=== PATIENT | male | born 1940 | race Caucasian/White ===

== ENCOUNTER 2023-12-13 14:05 | Observation (INO) | payer BC ==
[~2023-12-13] VITALS: Ht 180.3 cm; Wt 86.5 kg
[2023-12-13 15:13] LABS: BASO # 0.1 10^3/uL (0.0-0.2); BASO % 0.8 % (0.0-1.0); EOS # 0.1 10^3/uL (0.0-0.5); EOS % 0.5 % (0.0-3.0); HEMATOCRIT 41.3 % (42.0-52.0); LYMPH # 1.3 10^3/uL (1.5-5.0); LYMPH % 12.4 % (24.0-44.0); MEAN CORPUSCULAR HGB CONC 33.9 g/dl (32.0-36.5); MEAN CORPUSCULAR VOLUME 97.4 fl (80.0-96.0); MONO # 0.8 10^3/uL (0.0-0.8); NEUTROPHILS # 7.8 10^3/uL (1.5-8.5); NEUTROPHILS % 77.6 % (36.0-66.0); PLATELET COUNT, AUTOMATED 232 10^3/uL (150-450); RED BLOOD COUNT 4.24 10^6/uL (4.30-6.10); WHITE BLOOD COUNT 10.1 10^3/uL (4.0-10.0)
[2023-12-13 15:31] LABS: INR 1.02; PARTIAL THROMBOPLASTIN TIME 27.1 SECONDS (24.8-34.2); PROTHROMBIN TIME 13.1 SECONDS (12.5-14.5)
[2023-12-13 15:42] LABS: ALBUMIN 3.5 G/DL (3.2-5.2); BILIRUBIN,DIRECT 0.1 MG/DL (<0.4); BILIRUBIN,TOTAL 0.5 MG/DL (0.3-1.2); CALCIUM LEVEL 9.1 MG/DL (8.3-10.6); CREATININE FOR GFR 1.29 MG/DL (0.70-1.30); GLOMERULAR FILTRATION RATE 56.6 (>35); MB/CK RELATIVE INDEX 3.7 (< OR =4); POTASSIUM SERUM 4.7 MMOL/L (3.5-5.1); TOTAL PROTEIN 6.6 G/DL (5.7-8.2)
[2023-12-13 15:44] LABS: FREE T4 1.46 NG/DL (0.89-1.76); THYROID STIMULATING HORMONE 1.183 uIU/ML (0.55-4.78)
[2023-12-13] MEDS ORDERED: LEVO88TA24 PO (15:49)
[2023-12-13] MEDS ORDERED: PRED5TA PO (15:49)
[2023-12-13] MEDS ORDERED: FLOM0.4C39 PO (15:49)
[2023-12-13] MEDS ORDERED: VENTAER INH ×2 (15:49)
[2023-12-13] MEDS ORDERED: ESOM1CAP20 PO (15:49)
[2023-12-13] MEDS ORDERED: LISI10TA22 PO (15:49)
[2023-12-13] MEDS ORDERED: CHOL25TA8 PO (15:49)
[2023-12-13] MEDS ORDERED: MYRB25TA PO (15:49)
[2023-12-13] MEDS ORDERED: HOME MED LIST COMPLETE! XX SCH (15:50)
[2023-12-13] MEDS ORDERED: ISOVUE-370 76% 100ML VIAL As Ordered ONE (16:01)
[2023-12-13 16:52] LABS: MB/CK RELATIVE INDEX 3.5 (< OR =4)
[2023-12-13] MEDS: ASPIRIN 81MG CHEW TABLET PO ONE (17:28)
[2023-12-13] MEDS ORDERED: LEVALBUTEROL 1.25MG 0.5ML CONCENTRATE NEB NEB PRN (18:05)
[2023-12-13] MEDS: APIXABAN 5 MG TAB (ELIQUIS) PO SCH (22:10)
[2023-12-13] MEDS: PANTOPRAZOLE 40MG TAB (PROTONIX) PO SCH (22:10)
[2023-12-13] MEDS: TAMSULOSIN 0.4 MG CAP PO SCH (22:10)
[2023-12-13] MEDS: METOPROLOL TART 25 MG TABLET PO SCH (22:11)
[2023-12-14] VITALS (7 sets, daily range): BP systolic 105–136; BP diastolic 64–78; TEMP 97.2–98.1; O2SAT 91–94
[2023-12-14 06:21] LABS: HEMOGLOBIN 13.6 g/dl (13.5-17.5); MEAN CORPUSCULAR HEMOGLOBIN 32.9 pg (27.0-33.0); MEAN CORPUSCULAR VOLUME 96.6 fl (80.0-96.0); PLATELET COUNT, AUTOMATED 207 10^3/uL (150-450); RED BLOOD COUNT 4.14 10^6/uL (4.30-6.10); WHITE BLOOD COUNT 9.7 10^3/uL (4.0-10.0)
[2023-12-14 06:58] LABS: BLOOD UREA NITROGEN 24 MG/DL (9-23); CALCIUM LEVEL 8.7 MG/DL (8.3-10.6); CARBON DIOXIDE LEVEL 23 MMOL/L (20-31); CHLORIDE LEVEL 107 MMOL/L (98-107); CREATININE FOR GFR 1.12 MG/DL (0.70-1.30); GLOMERULAR FILTRATION RATE > 60.0 (>35); GLUCOSE, FASTING 127 MG/DL (74-106); MAGNESIUM LEVEL 1.9 MG/DL (1.8-2.4); POTASSIUM SERUM 4.6 MMOL/L (3.5-5.1); SODIUM LEVEL 138 MMOL/L (136-145)
[2023-12-14] MEDS ORDERED: MYRBETRIQ 25 MG PO SCH (09:00)
[2023-12-14] MEDS: predniSONE 5 MG TAB PO SCH (10:05)
[2023-12-14] MEDS: LEVOTHYROXINE 88MCG TABLET (0.088 MG) PO SCH (10:05)
[2023-12-14] MEDS ORDERED: ELIQ5TAB PO (11:17)
[2023-12-14] MEDS ORDERED: METO1TAB87 PO (11:17)
[2023-12-14] MEDS: METOPROLOL TART 25 MG TABLET PO ONE (12:40)
[2023-12-14] MEDS: METOPROLOL TART 25 MG TABLET PO SCH (20:40)
[2023-12-15] VITALS: BP 110/74; TEMP 98.1; O2SAT 94
[2023-12-15] MEDS: UNRESOLVED PATIENT OWN MED ORDER XX SCH (00:01)
[2023-12-15 04:13] VITALS: BP 102/63; TEMP 98.2; O2SAT 93
[2023-12-15 06:08] LABS: BASO # 0.1 10^3/uL (0.0-0.2); BASO % 1.1 % (0.0-1.0); EOS # 0.2 10^3/uL (0.0-0.5); EOS % 2.2 % (0.0-3.0); HEMOGLOBIN 13.3 g/dl (13.5-17.5); LYMPH # 1.5 10^3/uL (1.5-5.0); LYMPH % 21.2 % (24.0-44.0); MEAN CORPUSCULAR HEMOGLOBIN 32.7 pg (27.0-33.0); MEAN CORPUSCULAR HGB CONC 34.1 g/dl (32.0-36.5); MEAN CORPUSCULAR VOLUME 95.8 fl (80.0-96.0); MONO # 0.7 10^3/uL (0.0-0.8); MONO % 10.1 % (2.0-8.0); NEUTROPHILS # 4.7 10^3/uL (1.5-8.5); PLATELET COUNT, AUTOMATED 192 10^3/uL (150-450); RED BLOOD COUNT 4.07 10^6/uL (4.30-6.10); WHITE BLOOD COUNT 7.2 10^3/uL (4.0-10.0)
[2023-12-15 06:41] LABS: CALCIUM LEVEL 9.1 MG/DL (8.3-10.6); CREATININE FOR GFR 1.36 MG/DL (0.70-1.30); GLOMERULAR FILTRATION RATE 53.3 (>35); POTASSIUM SERUM 4.3 MMOL/L (3.5-5.1)
[2023-12-15] MEDS: NS 1,000 ML IV SCH (07:30)
[2023-12-15 08:00] VITALS: BP 118/76; TEMP 97.5; O2SAT 93
[2023-12-15 08:09] VITALS: BP 118/77
[2023-12-15] MEDS: NS 500 ML IV ONE (08:19)
[2023-12-15 09:00] VITALS: O2SAT 94
[2023-12-15] MEDS ORDERED: METO50TA7 PO (10:57)
== END 2023-12-15 11:55 | disposition home or self-care (01) ==
LOC: M ED 14:05 → M ED INP 14:06 → M MSPAV 12-14 00:51
PROVIDERS: ADMIT Internal Medicine; ATTEND Internal Medicine
DX: I48.92 Unspecified atrial flutter (principal); R55 Syncope and collapse; I10 Essential (primary) hypertension; Z85.51 Personal history of malignant neoplasm of bladder; Z85.118 Personal history of other malignant neoplasm of bronchus and lung; J44.9 Chronic obstructive pulmonary disease, unspecified; N40.1 Benign prostatic hyperplasia with lower urinary tract symptoms; N39.41 Urge incontinence; Z79.01 Long term (current) use of anticoagulants; Z88.1 Allergy status to other antibiotic agents; Z79.51 Long term (current) use of inhaled steroids; Z79.52 Long term (current) use of systemic steroids; K21.9 Gastro-esophageal reflux disease without esophagitis; G47.33 Obstructive sleep apnea (adult) (pediatric); Z92.3 Personal history of irradiation; E03.9 Hypothyroidism, unspecified
CPT/HCPCS: 36415; 71045; 71275; 80048; 80076; 82550; 82553; 83735; 84439; 84443; 84484; 85025; 85027; 85610; 85730; 93005; 93041; 93306; 94760; 96374; 99285; J7512; Q9967